=== PATIENT | female | born 1945 | race Caucasian/White ===

== ENCOUNTER 2018-08-20 15:10 | Outpatient (REF) | payer MEDICARE, MEDICAID, SELFPAY ==
[2018-08-20 19:25] LABS: HCT 39.7 % (36.0-46.0); HGB 12.7 g/dL (12.0-15.5); Mean Corpuscular Hemoglobin 31.3 pg (27.0-33.0); Mean Corpuscular Volume 97.8 fL (80-95); Mean Platelet Volume 10.9 fL (8.0-11.0); Platelet Count 272 x1000/uL (130-400); RBC 4.06 m/cumm (4.00-5.20); RBC Distribution Width 13.6 % (11.7-14.6); White Blood Cell Count 11.55 k/cumm (4.4-10.8)
[2018-08-20 19:35] LABS: Iron 36 ug/dL (50-175); Total Iron Binding Capacity 336 ug/dL (250-450); Transferrin Sat 11 % (15-50)
[2018-08-20 19:56] LABS: Albumin 3.6 g/dL (3.4-5.0); Anion Gap 9.1 mmol/L (3-11); BUN 26 mg/dL (7-18); CO2 31.9 mmol/L (21.0-32.0); CREATININE 0.98 mg/dL (0.55-1.02); Calcium 10.3 mg/dL (8.5-10.1); Chloride 98 mmol/L (98-107); Estimated GFR 56.11 (mL/min/1.73m2); Ferritin 16 ng/mL (8-388); Glucose 115 mg/dL (70-100); Potassium 4.7 mmol/L (3.5-5.1); Sodium 139 mmol/L (136-145)
[2018-08-20 20:21] LABS: PHOSPHORUS 4.1 mg/dL (2.6-4.7)
[2018-08-26 16:07] LABS: 25-Hydroxy D Total 47 ng/mL; 25-Hydroxy D2 36 ng/mL; 25-Hydroxy D3 11 ng/mL
== END 2018-08-20 15:30 ==
LOC: NCHCN 15:10
PROVIDERS: PCP Internal Medicine; Visit Provider Internal Medicine
DX: E83.52 Hypercalcemia (principal); R79.89 Other specified abnormal findings of blood chemistry; G47.33 Obstructive sleep apnea (adult) (pediatric); J44.1 Chronic obstructive pulmonary disease with (acute) exacerbation; M65.849 Other synovitis and tenosynovitis, unspecified hand; M81.0 Age-related osteoporosis without current pathological fracture
CPT/HCPCS: 80069; 82306; 85027; 82728; 83540; 83550; 83735